=== PATIENT | male | born 1955 | race Caucasian/White ===

== ENCOUNTER 2022-11-03 14:00 | Outpatient (CLI) | payer MEDICARE, BC, SELFPAY | END 2022-11-03 14:01 | disposition home or self-care (01) | PROVIDERS: PCP Family Medicine; Visit Provider Family Medicine | DX: I10 Essential (primary) hypertension (principal); Z13.0 Encounter for screening for diseases of the blood and blood-forming organs and certain disorders involving the immune mechanism; Z13.6 Encounter for screening for cardiovascular disorders | CPT/HCPCS: 80048; 80061 ==

== ENCOUNTER 2022-12-11 13:01 | Outpatient (CLI) | payer MEDICARE, BC, SELFPAY ==
[2022-12-11 20:10] LABS: PCR FLU A POSITIVE PCR FLU A (Negative); PCR FLU B Negative PCR FLU B (Negative)
[2022-12-11 20:16] LABS: SARS PCR* Negative SARS-CoV-2 (Negative)
== END 2022-12-11 13:02 | disposition home or self-care (01) ==
LOC: LONREF 13:02
PROVIDERS: PCP Family Medicine; Visit Provider Nurse Practitioner Family
DX: R05.9 Cough, unspecified (principal)
CPT/HCPCS: 87631

== ENCOUNTER 2023-01-10 07:18 | Emergency (ER) | payer MEDICARE, BC, SELFPAY ==
[2023-01-10] VITALS (13 sets, daily range): BP systolic 152–159; BP diastolic 83–127; PULSE 59–77; RESP 18; TEMP 36.5; O2SAT 93–99
--- NOTE | 2023-01-10 08:08 | CRLHL7_ITS ---
For Patients: As a result of the Century Cures Act, medical imaging exams and procedure reports are released immediately into your electronic medical record. You may view this report before your referring provider. If you have questions, please contact your health care provider. INDICATION: Chest pain. TECHNIQUE: Two views of the chest. IMPRESSION: No focal pulmonary opacities or pneumothorax. Sternotomy. Calcified lymph nodes in the left AP window suggesting granulomatous disease. Normal heart size and pulmonary vascular pattern. Dictated by Johnnie Bailey MD @ 01/10/2023 9:18:07 AM (Electronically Signed)
--- NOTE | 2023-01-10 08:10 | ED_ITS ---
HPI - Chest Pain General Date Seen: 01/10/23 Chief Complaint: Chest Pain Stated Complaint: chest pain Time Seen by Provider: 01/10/23 07:32 Source: patient Mode of arrival: ambulatory Limitations: no limitations History of Present Illness HPI narrative: Patient is a 67-year-old male with a history of hypertension presenting to the emergency department with chest pain. States symptoms started this morning at 03:00 awoke multiple sleep. States his Pain was initially a burning sensation that he thought was reflux. was midsternal and did not radiate anywhere. Pain was intermittent states he is currently pain free. He is a nonsmoker. Denies ever having symptoms like this before. He was concerned because he has 2 brothers and a father passed had an MD had a younger age than he is. Has not had any shortness of breath associated with the pain. Exertion did not make pain worse. Denies abdominal pain, lightheadedness, dizziness, fevers, chills, diarrhea, constipation. Does state he is having a cough but has had this cough for the past month since he had The flu. Related Data Home Medications Medication Instructions Recorded Confirmed aspirin 81 mg tablet,delayed 81 mg PO DAILY 06/17/22 12/11/22 release omeprazole 20 mg capsule,delayed 20 mg PO QDAY 08/27/22 12/11/22 release Previous Rx's Medication Instructions Recorded lisinopril 10 1 tab PO DAILY #90 tabs 11/03/22 mg-hydrochlorothiazide 12.5 mg tablet tamsulosin 0.4 mg capsule 0.4 mg PO DAILY #90 caps 11/03/22 naproxen 500 mg tablet 500 mg PO BID PRN pain #20 tabs 12/13/22 Allergies Allergy/AdvReac Type Severity Reaction Status Date / Time No Known Drug Allergies Allergy Verified 12/11/22 12:51 Review of Systems Status of ROS Reports: 10 or more systems reviewed and unremarkable except as noted in History and below [facility] Medical History (Updated 01/10/23 @ 10:26 by Mikey Lentz DO) COVID-19 ?U07.1 - COVID-19 (ICD-10) History of vitamin D deficiency ?Z86.39 - Personal history of other endocrine, nutritional and metabolic disease (ICD-10) History of Lyme disease ?Z86.19 - Personal history of other infectious and parasitic diseases (ICD- 10) History of hydrocele (03/17/17) ?Z87.438 - Personal history of other diseases of male genital organs (ICD-10) Surgical History (Updated 11/10/22 @ 09:45 by Yumiko Doshi) History of sternectomy ?Z98.890 - Other specified postprocedural states (ICD-10) History of vasectomy ?Z98.52 - Vasectomy status (ICD-10) History of inguinal hernia repair (03/04/10) ?Z98.890 - Other specified postprocedural states (ICD-10) ?Z87.19 - Personal history of other diseases of the digestive system (ICD-10) History of elbow surgery (2013) ?Z98.890 - Other specified postprocedural states (ICD-10) History of arthroscopy of left shoulder ?Z98.890 - Other specified postprocedural states (ICD-10) History of arthroscopy of both knees ?Z98.890 - Other specified postprocedural states (ICD-10) Family History (Updated 11/10/22 @ 09:47 by Yumiko Doshi) Father ASCVD (arteriosclerotic cardiovascular disease) High cholesterol High blood pressure Diabetes Mother Stroke Brother ASCVD (arteriosclerotic cardiovascular disease) Sister Breast cancer Brother ASCVD (arteriosclerotic cardiovascular disease) Social History Smoking Status: Never smoker Do you use any of these nicotine containing products: None Second hand tobacco smoke exposure: No How often do you have a drink containing alcohol: never How often do you have six or more drinks on one occasion: Never AUDIT-C Alcohol total score: 0 Non-prescribed substance use: denies use Exam Narrative Exam Narrative: Const: Well-nourished, Well-developed, in mild distress Eyes: PERRL, no conjunctival injection, and symmetrical lids HENT: Atraumatic external nose and ears. Moist mucous membranes. Neck: Symmetric, trachea midline, No thyromegaly. CVS: RRR, No murmurs or gallops. Peripheral pulses 2+ and equal in all extremities RESP: Unlabored respiratory effort. Clear to auscultation bilaterally. GI: Nontender/Nondistended, No rebound or guarding. MSK:Extremities w/o deformity, Normal Active ROM , no chest tenderness Skin: Warm, Dry. No rashes or lesions. Neuro: Normal Muscle tone, No focal neurological deficits. Psych: Awake, Alert, & Oriented x3. Appropriate mood and affect. Const Vital Signs, click to edit/add: Vital Signs - 24 hr 01/10/23 07:28 01/10/23 07:37 01/10/23 08:00 Temperature 97.7 F Pulse Rate 69 68 Pulse Rate [Right Pulse Oximeter] 77 Respiratory Rate 18 Blood Pressure Blood Pressure [Right Upper Arm] 158/93 H Pulse Oximetry 98 96 94 Oxygen Delivery Method Room Air 01/10/23 08:02 Temperature Pulse Rate 67 Pulse Rate [Right Pulse Oximeter] Respiratory Rate Blood Pressure 152/90 H Blood Pressure [Right Upper Arm] Pulse Oximetry 95 Oxygen Delivery Method Course Vital Signs Vital signs: Initial Vital Signs Temperature 97.7 F 01/10/23 07:28 Temperature Source Temporal Artery Scan 01/10/23 07:28 Pulse Rate 77 01/10/23 07:28 Respiratory Rate 18 01/10/23 07:28 Blood Pressure 158/93 H 01/10/23 07:28 Blood Pressure Mean 114 H 01/10/23 07:28 Blood Pressure Position Sitting 01/10/23 07:28 Pulse Oximetry 98 01/10/23 07:28 Oxygen Delivery Method Room Air 01/10/23 07:28 Vital Signs Temperature 97.7 F 01/10/23 07:28 Pulse Rate 77 01/10/23 07:28 Respiratory Rate 18 01/10/23 07:28 Blood Pressure 158/93 H 01/10/23 07:28 Pulse Oximetry 98 01/10/23 07:28 Oxygen Delivery Method Room Air 01/10/23 07:28 Temperature 97.7 F 01/10/23 07:28 Pulse Rate 67 01/10/23 08:02 Respiratory Rate 18 01/10/23 07:28 Blood Pressure 152/90 H 01/10/23 08:02 Pulse Oximetry 95 01/10/23 08:02 Oxygen Delivery Method Room Air 01/10/23 07:28 MDM - Chest Pain MDM Narrative Medical decision making narrative: patient is 67-year-old male presenting to emergency department for chest pain. Symptoms woke a multiple sleep around 03:00 have an intermittent. Currently pain free. He has a family history of heart disease and ACS is on the differential. Differential also includes pneumothorax, gastric reflux, costochondritis. Seems unlikely To be a pulmonary embolism with no associated shortness of breath. pain is relatively minimal as was signs is stable aortic dissection is also unlikely. Symptoms do not seem to be associated pneumonia But we will order chest x-ray to better evaluate this. CBC, CMP, COVID/flu all read returned showing no concerning abnormalities. He does have a sternotomy but she says was from a thymus removal. 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 I believe he can follow-up outpatient for this. Repeat troponin also was within normal limits. EKG showed no concerning findings. Does not appear to be any emergent condition causing his symptoms. Lab Data Labs: Lab Results 01/10/23 01/10/23 Range/Units 07:30 10:00 WBC 7.81 (4.50-11.00) K/uL RBC 4.96 (4.30-5.90) m/uL Hgb 15.5 (13.5-17.5) gm/dL Hct 46.4 (37.0-53.0) % MCV 94 (80-100) fL MCH 31 (26-34) pg MCHC 33 (32-36) gm/dL RDW Coeff of Radha 12.3 (11.5-15.5) % Plt Count 203 (140-440) K/uL Neut % (Auto) 74.6 H (42.0-72.0) % Lymph % (Auto) 13.4 L (20-44) % [place] % (Auto) 8.5 (0.0-11.0) % Eos % (Auto) 2.8 (0.0-7.0) % Baso % (Auto) 0.4 (0.0-3.0) % Neut # (Auto) 5.80 (1.7-7.0) K/uL Lymph # (Auto) 1.00 (0.90-2.90) K/uL [place] # (Auto) 0.70 (0.00-0.90) K/UL Eos # (Auto) 0.22 (0.00-0.50) K/uL Baso # (Auto) 0.03 (0.00-0.30) K/uL Abs Immat Gran (auto) 0.02 (0.00-0.30) K/uL Imm/Tot Granulo (auto) 0.3 % Sodium 137 (135-149) mmol/L Potassium 3.7 (3.6-5.1) mmol/L Chloride 106 (96-114) mmol/L Carbon Dioxide 24 (20-32) mmol/L Anion Gap 7 (7-15) mEq/L BUN 20 (7-30) mg/dL Creatinine 0.9 (0.5-1.5) mg/dL Estimated GFR 94 ml/min Glucose 143 H (60-115) mg/dL Calcium 9.1 (8.4-10.6) mg/dL Total Bilirubin 0.2 (0.1-1.5) mg/dL AST 25 (12-35) U/L ALT 24 (4-50) U/L Alkaline Phosphatase 46 (40-150) U/L Total Protein 6.9 (6.0-8.3) g/dL Albumin 4.3 (3.3-5.0) g/dL SARS-CoV-2 (PCR) Negative SARS-CoV-2 (Negative) Influenza Type A (PCR) Negative PCR FLU A (Negative) Influenza Type B (PCR) Negative PCR FLU B (Negative) POC Troponin I 0.00 L 0.00 L (0.01-0.04) ng/ml Imaging Data Chest x-ray: Radiologist's impression: No focal pulmonary opacities or pneumothorax. Sternotomy. Calcified lymph nodes in the left AP window suggesting granulomatous disease. Normal heart size and pulmonary vascular pattern. ECG Data Attestation: I personally reviewed and interpreted this ECG as follows: Prior ECG tracings: available for review Interpretation: normal sinus rhythm with a rate of 70 beats per minute, normal intervals, normal axis, no ST or T-wave abnormalities. There is a right bundle-branch block. Appears similar to previous EKG on file Discharge Plan Discharge Clinical Impression: Chest pain Qualifiers: Chest pain type: unspecified Qualified Code(s): R07.9 - Chest pain, unspecified Patient Disposition: Home, Self-Care Condition: Stable Instructions: Chest Pain (DC) Additional Instructions: Lab work all returned showing no concerning findings at this time. This does not appear to be cardiac in related causing her chest pain but if symptoms worsen please return to the emergency department immediately. Chest x-ray did show some possible granulomatosis disease in some of the lymph nodes. Recommend he follow-up with the primary care provider about this. Prescriptions: No Action lisinopril-hydrochlorothiazide 10-12.5 mg tablet 1 tab PO DAILY Qty: 90 3RF tamsulosin 0.4 mg capsule 0.4 mg PO DAILY Qty: 90 3RF aspirin 81 mg tablet,delayed release (DR/EC) 81 mg PO DAILY naproxen 500 mg tablet 500 mg PO BID PRN (Reason: pain) Qty: 20 1RF omeprazole 20 mg capsule,delayed release(DR/EC) 20 mg PO QDAY Follow Up/Referrals: Dontrell Elizondo MD [Primary Care Provider] - Stand Alone Forms: [employer] Info Instructions
[2023-01-10 08:25] LABS: Basophils Absolute Auto 0.03 K/uL (0.00-0.30); Basophils Percent Auto 0.4 % (0.0-3.0); Eosinophils Absolute Auto 0.22 K/uL (0.00-0.50); Eosinophils Percent Auto 2.8 % (0.0-7.0); Hematocrit 46.4 % (37.0-53.0); Hemoglobin* 15.5 gm/dL (13.5-17.5); Immature Granulocytes Abs Auto 0.02 K/uL (0.00-0.30); Immature Granulocytes Pct Auto 0.3 %; Lymphocytes Percent Auto 13.4 % (20-44); Mean Corpuscular HGB Conc 33 gm/dL (32-36); Mean Corpuscular Hemoglobin 31 pg (26-34); Mean Corpuscular Volume 94 fL (80-100); Monocytes Percent Auto 8.5 % (0.0-11.0); Neutrophils Percent Auto 74.6 % (42.0-72.0); Platelet Count* 203 K/uL (140-440); RDW Coefficient of Variation % 12.3 % (11.5-15.5); Red Blood Count 4.96 m/uL (4.30-5.90); White Blood Count* 7.81 K/uL (4.50-11.00)
[2023-01-10 08:27] LABS: Slide Review Reflex No
--- NOTE | 2023-01-10 08:37 | ED.NURSE ---
Patient experiencing epigastric burning pain, 2/10 at this time.
[2023-01-10 08:45] LABS: Albumin* 4.3 g/dL (3.3-5.0); Chloride* 106 mmol/L (96-114); Potassium* 3.7 mmol/L (3.6-5.1); Sodium* 137 mmol/L (135-149)
[2023-01-10 08:48] LABS: Alanine Aminotransferase* 24 U/L (4-50); Alkaline Phosphatase* 46 U/L (40-150); Anion Gap 7 mEq/L (7-15); Aspartate Amino Transferase* 25 U/L (12-35); Bilirubin Total* 0.2 mg/dL (0.1-1.5); Blood Urea Nitrogen* 20 mg/dL (7-30); Calcium* 9.1 mg/dL (8.4-10.6); Carbon Dioxide* 24 mmol/L (20-32); Creatinine* 0.9 mg/dL (0.5-1.5); Estimated Glomerular Filt Rate 94 ml/min; Glucose* 143 mg/dL (60-115); Total Protein* 6.9 g/dL (6.0-8.3)
[2023-01-10 09:02] LABS: PCR FLU A Negative PCR FLU A (Negative); PCR FLU B Negative PCR FLU B (Negative)
[2023-01-10 09:03] LABS: SARS PCR* Negative SARS-CoV-2 (Negative)
== END 2023-01-10 10:36 | disposition home or self-care (01) ==
PROVIDERS: Internal Medicine; Emergency Provider Student in an Organized Health Care Education/Training Program; PCP Family Medicine
DX: R07.9 Chest pain, unspecified (principal)
CPT/HCPCS: 36415; 71046; 80053; 84484; 85025; 87631; 93005; 99283; 99284; 99285

== ENCOUNTER 2023-04-10 08:28 | Outpatient (CLI) | payer MEDICARE, BC, SELFPAY ==
--- NOTE | 2023-04-10 09:00 | CT_ITS ---
Patient: CHAPO FLOREZ Facility:?[facility] Patient ID:?[id number] Site Patient ID:?[id number]. Site :?[id number] Study:?CT-Chest W/IV-04/10/2023 9:41:53 AM Ordering Physician:MELINDA Final Report: Indication: SUBACUTE COUGH FOR 8 WEEKS Technique: CHEST WITH IV ISOVUE 370 80CC CONTRAST Please note that all CT scans at this facility use dose modulation, iterative reconstruction, and/or weight-based dosing when appropriate to reduce radiation dose to as low as reasonably achievable. Comparison: Chest x-ray 04/06/2023 Findings: The visualized thyroid is within normal limits. No adenopathy. Calcified left sided lymph nodes are present representing sequela of granulomatous disease. Minimal incidental subareolar gynecomastia noted. Calcified nodular density within the anterior lingula considered incidental. Multilevel discogenic spurring. Postop changes of median sternotomy. Calcified granuloma in the spleen. No infiltrate or edema. No effusion or pneumothorax. 4 millimeter noncalcified nodule within the anterior left lung, series 3, image 56. Impression: No airspace disease or fibrosis. Old granulomatous disease. 4 millimeter noncalcified pulmonary nodule on the left. Optional follow-up CT in 1 year. No adenopathy. Please note that all CT scans at this facility use dose modulation, iterative reconstruction, and/or weight-based dosing when appropriate to reduce radiation dose to as low as reasonably achievable. Dictated by Peng Huerta MD @ 04/10/2023 11:09:39 AM Signed by:?Peng Hureta MD @04/10/2023 11:09:39 AM (Electronic Signature)
[2023-04-10 09:04] LABS: Creatinine* 0.9 mg/dL (0.5-1.5); Estimated Glomerular Filt Rate 94 ml/min
== END 2023-04-10 08:29 | disposition home or self-care (01) ==
LOC: CT 08:30
PROVIDERS: PCP Family Medicine; Visit Provider Family Medicine
DX: R05.2 Subacute cough (principal); R91.1 Solitary pulmonary nodule
CPT/HCPCS: 36415; 71260; 82565; Q9967

== ENCOUNTER 2023-08-12 10:36 | Outpatient (CLI) | payer MEDICARE, BC, SELFPAY ==
--- NOTE | 2023-08-12 11:00 | CRLHL7_ITS ---
For Patients: As a result of the Cures Act, medical imaging exams and procedure reports are released immediately into your electronic medical record. You may view this report before your referring provider. If you have questions, please contact your health care provider. INDICATION: Spinal stimulator placement trial. COMPARISON: 04/10/2023. TECHNIQUE: Noncontrast CT thoracic spine. FINDINGS: Trace midthoracic curve convex the right. Mild kyphosis. Normal vertebral body facet alignment. No fractures. No vertebral body loss of height. No spondylosis. No fractures visualized posterior ribs. Thoracic spondylosis. Multilevel ventral bridging osteophytes. T9-10: Disk degeneration. No spinal canal neural foraminal narrowing. T10-11: Disc degeneration. Small central disc protrusion and disc osteophyte complex with no spinal canal neural foraminal narrowing. T11-12: Disc degeneration. Small central disc osteophyte complex with no splenic neural foraminal narrowing. No spinal canal or neural foraminal narrowing at remaining levels of the thoracic spine. Visualized lungs are clear. Normal paraspinal soft tissues. IMPRESSION: 1. Mild kyphosis. Otherwise normal alignment. 2. No fractures 3. Thoracic spondylosis 4. No spinal canal or neural foraminal narrowing at all levels. Please note that all CT scans at this facility use dose modulation, iterative reconstruction, and/or weight-based dosing when appropriate to reduce radiation dose to as low as reasonably achievable. Dictated by Maxi Marshall MD @ 08/13/2023 9:49:16 PM (Electronically Signed)
== END 2023-08-12 10:37 | disposition home or self-care (01) ==
PROVIDERS: PCP Family Medicine; Visit Provider Nurse Practitioner
DX: M54.2 Cervicalgia (principal); M47.894 Other spondylosis, thoracic region
CPT/HCPCS: 72128

== ENCOUNTER 2023-09-18 10:12 | Outpatient (CLI) | payer MEDICARE, BC, SELFPAY | END 2023-09-18 10:13 | disposition home or self-care (01) | PROVIDERS: PCP Family Medicine; Visit Provider Family Medicine | DX: Z12.5 Encounter for screening for malignant neoplasm of prostate (principal); N32.0 Bladder-neck obstruction | CPT/HCPCS: G0103 ==

== ENCOUNTER 2023-12-08 06:15 | Outpatient (CLI) | payer MEDICARE, BC, SELFPAY ==
--- NOTE | 2023-12-08 07:57 | W.ANESCHARGE ---
Anesthesia Charges Start Date/Time Anesthesia Start Date: 12/08/23 Anesthesia Start Time: 07:14 Stop Date/Time Anesthesia Stop Date: 12/08/23 Anesthesia Stop Time: 07:54
--- NOTE | 2023-12-08 10:02 | W.ANESCHARGE ---
Anesthesia Charges Start Date/Time Anesthesia Start Date: 12/08/23 Anesthesia Start Time: 07:14 Stop Date/Time Anesthesia Stop Date: 12/08/23 Anesthesia Stop Time: 07:54
== END 2023-12-08 06:16 | disposition home or self-care (01) ==
LOC: OP CLINIC 06:15
PROVIDERS: PCP Family Medicine; Visit Provider Surgery
DX: Z12.11 Encounter for screening for malignant neoplasm of colon (principal); D12.1 Benign neoplasm of appendix; D12.3 Benign neoplasm of transverse colon; D12.7 Benign neoplasm of rectosigmoid junction; K64.8 Other hemorrhoids; Z86.0100 Personal history of colon polyps, unspecified
CPT/HCPCS: 00811; 45380; 45385; 88305; J2704

== ENCOUNTER 2024-09-26 15:52 | Outpatient (CLI) | payer MEDICARE, BC, SELFPAY | END 2024-09-26 15:53 | disposition home or self-care (01) | PROVIDERS: PCP Family Medicine; Visit Provider Family Medicine | DX: I10 Essential (primary) hypertension (principal); Z79.899 Other long term (current) drug therapy | CPT/HCPCS: 82607; 84443 ==